=== PATIENT | female | born 1990 | race Caucasian/White ===

== ENCOUNTER 2016-11-07 21:04 | Emergency (ER) | payer MEDICAID ==
[~2016-11-07] VITALS: Ht 157.5 cm; Wt 72.1 kg
[~2016-11-07 21:04] MED LIST: IBUP600 PO; IRONCAP2 PO; METH-703 PO; PREN0.01 PO; PROT40TA PO
[2016-11-07 21:11] VITALS: BP 115/72; PULSE 100; RESP 18; TEMP 98.2; O2SAT 100
--- NOTE | 2016-11-07 22:19 | PD ---
HPI Chief Complaint: Cold / Flu Symptoms Time Seen by Provider: 22:18 Travel History International Travel<30 days: No Contact w/Intl Traveler<30days: No Traveled to known affect area: No History of Present Illness HPI 26-year-old female 5 months presents to the emergency department for evaluation of sore throat, nasal congestion, runny nose, cough for 1 day. Patient denies fever, chills, nausea, vomiting, chest pain, shortness of breath , abdominal pain, vaginal bleeding. States that she thought she saw bumps in the back of her throat earlier today which is what prompted her to come in. She denies travel or sick contacts. States she has been feeling the baby move well today. No other complaints. PFSH Past Medical History Medical History: Denies Significant Hx Tetanus Vaccination: < 5 Years Influenza Vaccination: No ?: LMP: 5 months Past Surgical History Surgical History: No Previous Surgery Social History Alcohol Use: No Tobacco Use: No Substance Use: No Allergies-Medications (Allergen,Severity, Reaction): Coded Allergies: No Known Allergies (Unverified , 11/07/16) Reported Meds & Prescriptions Reported Meds & Active Scripts Active No Active Prescriptions or Reported Medications Review of Systems Except as stated in HPI: all other systems reviewed are Neg Physical Exam Narrative GENERAL: Well-nourished and well-developed pleasant female patient in no acute distress who is nontoxic appearing. SKIN: Warm and dry. HEAD: Normocephalic and atraumatic. EYES: No injection, drainage, or hyphema noted. PERRLA. EOMI. ENT: No nasal drainage noted. Oropharynx is clear and the TMs are normal with good landmarks. NECK: Supple and the trachea is midline. No lymphadenopathy is noted throughout the cervical chains. CARDIOVASCULAR: Regular rate and rhythm. RESPIRATORY: Breath sounds are equal bilaterally with no accessory muscle use, wheezing, rhonchi, or crackles. GASTROINTESTINAL: Abdomen is soft, non-tender, and nondistended. MUSCULOSKELETAL: No obvious deformities, swelling, cyanosis, or ecchymosis is present throughout the upper and lower extremities. Patient has full range of motion without any signs of neurovascular compromise. NEUROLOGICAL: Awake, alert, and oriented. Normal speech and gait. Cranial nerves are grossly intact. Data Data Last Documented VS Vital Signs Date Time Temp Pulse Resp B/P Pulse Ox O2 Delivery O2 Flow Rate FiO2 11/07/16 21:15 16 100 Room Air 11/07/16 21:11 98.2 100 115/72 MDM Medical Decision Making Medical Screen Exam Complete: Yes Emergency Medical Condition: Yes Differential Diagnosis URI versus viral syndrome versus pharyngitis versus GERD Narrative Course 26-year-old female 5 months presents to the emergency department for evaluation of sore throat with cough and cold symptoms for one day. Patient is afebrile. She is tachycardic with a heart rate of 100 bpm. Otherwise vital signs are within normal limits. Physical examination is unremarkable. Patient appears well overall. heart tones within normal limits. Discussed supportive care with the patient. This is a viral upper respiratory infection. 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 Patient verbalizes understanding and agreement with treatment plan. Diagnosis Primary Impression: Upper respiratory infection Qualified Code: J06.9 - Viral upper respiratory tract infection Referrals: Broiler Supervisor Patient Instructions: General Instructions, Upper Respiratory Infection (ED), Upper Respiratory Infection in Children (ED) Additional Instructions: Rest. Drink plenty of fluids. Take [id number] tylenol as directed on the box as needed for pain. Follow-up with your Primary Care Physician. Return to the ED for any acute worsening of symptoms. Med/Other Pt SpecificInfo: No Change to Meds Scripts No Active Prescriptions or Reported Meds Disposition: 01 DISCHARGE HOME Condition: Stable Jennifer Crane Nov 07, 2016 22:19
== END 2016-11-07 22:25 | disposition home or self-care (01) ==
LOC: PHEFT 21:04
DX: O26.92 Pregnancy related conditions, unspecified, second trimester (principal); J06.9 Acute upper respiratory infection, unspecified; R00.0 Tachycardia, unspecified
CPT/HCPCS: 99283

== ENCOUNTER → 2017-02-06 | Outpatient (CLI) | payer MEDICAID | LOC: HPND 08:38 | PROVIDERS: ATTEND Obstetrics & Gynecology | DX: O36.5930 Maternal care for other known or suspected poor fetal growth, third trimester, not applicable or unspecified (principal); Z3A.36 36 weeks gestation of pregnancy | CPT/HCPCS: 76816 ==

== ENCOUNTER 2017-02-08 17:35 | Emergency (ER) | payer MEDICAID ==
[~2017-02-08] VITALS: Ht 157.5 cm; Wt 75.3 kg
--- NOTE | 2017-02-08 18:55 | PD ---
HPI Travel History International Travel<30 Days: No Contact w/Intl Traveler<30Days: No Known Affected Area: No History of Present Illness HPI This patient is a 26-year-old 2 para 1 EDC is March 04, 2017 presently at 36 weeks and 4 days she presents with chief complaint of pain in the suprapubic area that radiates to her upper thighs and low back pain sharp constant feels more like pressure no rupture of membranes no vaginal bleeding no keisha contractions the baby is active no fever no chills no nausea no vomiting no diarrhea or constipation no recent sexual intercourse no urinary tract symptoms states she's been excessively active today washing and cleaning out her car doing laundry 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 4 oz. vaginal delivery complicated by uterine inversion Past Surgical History Narrative Surgical Had a melanie removed from her buttocks as a child Family History Family History: Negative Social History Alcohol Use: No Tobacco Use: No Substance Abuse: No Allergies-Medications (Allergen,Severity, Reaction): Coded Allergies: No Known Allergies (Unverified , 02/08/17) Home Meds No Active Prescriptions or Reported Meds Review of Systems Gastrointestinal: Abdominal Pain (pressure in her lower abdomen) Musculoskeletal: Other (pressure in her lower back) Physical Exam Narrative GENERAL: Well-nourished, well-developed patient. Alert oriented 3 and cooperative in moderate distress secondary to low back and lower abdominal pain SKIN: Warm and dry. HEAD: Normocephalic and atraumatic. EYES: No scleral icterus. No injection or drainage. ENT: No nasal drainage noted. Mucous membranes pink. Airway patent. NECK: Supple, trachea midline. No JVD. CARDIOVASCULAR: Regular rate and rhythm without murmurs, gallops, or rubs. RESPIRATORY: Breath sounds equal bilaterally. No accessory muscle use.. ABDOMEN/GI: Gravid consistent with approximately 36 weeks uterus is soft no palpable contractions no epigastric or right upper quadrant tenderness no palpable contractions Gravid to [-] weeks size 36 weeks size Fundal Height: [-] GENITOURINARY: External Genitalia: intact and normal in appearance BUS glands: [-] Cervix: [-] Posterior soft Dilatation: [-] Closed Effacement: [-] 0 Station: [-] -2 Presentation: [-] Vertex Membranes: [intact Uterine Contractions: [-] Irregular FHT's: Category: [-] 1 Baseline: [-] 150 Reactive: [-]+ Accelerations to 180 Variability: [-] Moderate [id number] variability Decels: [-] 0 EXTREMITIES: No cyanosis or edema. 2+ reflexes NEUROLOGICAL: Awake and alert. Motor and sensory grossly within normal limits. Five out of 5 muscle strength in all muscle groups. Normal speech. Data Data Vital Signs Reviewed: Yes (blood pressure 119/70 pulse 101 afebrile) Labs Bedside ultrasound is done amniotic fluid index is 12.89 Vertex presentation measuring 9.00 equaling 36 weeks and 3 days Anterior grade 2 placenta no abruption no previa Positive sustained breathing Positive flexion positive tone Category 1 reactive tracing 10 out of 10 biophysical profile MDM Medical Record Reviewed: No (no records available) Interpretation(s) 26-year-old at 36 weeks and 4 days Not in labor Lightning with musculoskeletal pain in the low back and lower abdomen Rule out UTI History of uterine inversion with the last delivery 10 out of 10 biophysical profile Narrative Course / MDM Urinalysis is negative Category 1 tracing Plan By mouth fluid hydration External monitoring Vistaril 50 mg by mouth single dose Urinalysis If urine is positive for UTI will treat with Keflex 500 mg by mouth 3 times a day for 7 days Patient follow-up with Dr. Colon on Thursday Diagnosis Diagnosis: Primary Impression: 36 weeks gestation of Additional Impressions: Jasiel Monreal contractions Musculoskeletal pain Disposition: DISCHARGE HOME Condition: Stable Scripts No Active Prescriptions or Reported Meds She Lin MD Feb 08, 2017 18:55
[2017-02-08 19:51] LABS: BLOOD, URINE NEG (NEG); COMMENT (UR) CULT NOT INDICATED; CULTURE IF INDICATED CULT NOT INDICATED; GLUCOSE,URINE NEG (NEG); KETONE, URINE TRACE mg/dL (NEG); MUCUS URINE FEW /lpf (OCC); NITRITE,URINE NEG (NEG); PH, URINE 6.5 (5.0-8.5); SQUAMOUS EPITHELIAL CELL URINE 1 /hpf (0-5); URINE COLOR YELLOW (YELLW/STRAW)
== END 2017-02-08 20:14 | disposition home or self-care (01) ==
LOC: HOBED 17:35
DX: O47.03 False labor before 37 completed weeks of gestation, third trimester (principal); R52 Pain, unspecified; Z3A.36 36 weeks gestation of pregnancy
CPT/HCPCS: 59025; 81001

== ENCOUNTER 2017-02-27 08:25 | Inpatient (IN) | payer MEDICAID ==
[2017-02-27] VITALS (7 sets, daily range): BP systolic 106–112; BP diastolic 61–68; PULSE 66–86; RESP 16–18; TEMP 97.5–98.3
[2017-02-27 13:34] LABS: AUTOMATED NEUTROPHIL # 7.2 TH/MM3 (1.8-7.7); BASOPHIL % 0.4 % (0.0-2.0); EOSINOPHIL # 0.1 TH/MM3 (0-0.4); HEMATOCRIT 31.4 % (35.0-46.0); HEMO FLAGS DIFF FINAL; LYMPH % 15.6 % (9.0-44.0); LYMPHOCYTE # 1.5 TH/MM3 (1.0-4.8); MEAN CELL VOLUME 76.2 FL (80.0-100.0); MEAN CORPUSCULAR HEMOGLOBIN 23.3 PG (27.0-34.0); MEAN CORPUSCULAR HGB CONC 30.6 % (32.0-36.0); MONO % 6.3 % (0.0-8.0); NEUT % 76.7 % (16.0-70.0); PLATELET COUNT 178 TH/MM3 (150-450); RED BLOOD COUNT 4.12 MIL/MM3 (4.00-5.30); RED CELL DISTRIBUTION WIDTH 16.2 % (11.6-17.2); WHITE BLOOD COUNT 9.4 TH/MM3 (4.0-11.0)
[2017-02-27] MEDS ORDERED: LACTATED RINGER'S 1000 ML BOLUS IV PRN (13:45)
[2017-02-27] MEDS ORDERED: LIDOCAINE HCL 1% 50 ML VIAL I-DERMAL PRN (13:45)
[2017-02-27] MEDS ORDERED: NS 1000 ML IV PRN (13:45)
[2017-02-27] MEDS ORDERED: MINERAL OIL 10 ML VIAL TOPICAL PRN (13:45)
[2017-02-27] MEDS ORDERED: CITRIC ACID-SODIUM CITRATE LIQ 30 ML UDC PO SCH (13:45)
[2017-02-27] MEDS ORDERED: NS 500 ML BOLUS IV PRN (13:45)
[2017-02-27] MEDS ORDERED: OXYTOCIN 30 UNITS 500ML PREMIX IV ONE (13:45)
[2017-02-27] MEDS ORDERED: LIDOCAINE HCL 1% 50 ML VIAL INFIL PRN (13:45)
[2017-02-27 13:54] LABS: BACTERIA, URINE RARE /hpf; BLOOD, URINE NEG (NEG); COMMENT (UR) CULT NOT INDICATED; CULTURE IF INDICATED CULT NOT INDICATED; GLUCOSE,URINE NEG (NEG); KETONE, URINE NEG (NEG); MUCUS URINE FEW /lpf (OCC); NITRITE,URINE NEG (NEG); PH, URINE 6.5 (5.0-8.5); SQUAMOUS EPITHELIAL CELL URINE <1 /hpf (0-5); URINE COLOR LIGHT-YELLOW (YELLW/STRAW)
[2017-02-27] MEDS: LACTATED RINGER'S 1000 ML IV SCH ×2 (14:48→23:49)
--- NOTE | 2017-02-27 15:21 | MH ---
cc: Yudelka FULTON MD DATE OF ADMISSION: 02/27/2017 REASON FOR ADMISSION 1. Intrauterine at 39 weeks. 2. Intrauterine growth restriction. 3. Recommended delivery. HISTORY OF PRESENT ILLNESS Ms. Jessica is a 27-year-old female, para 1-0-0-1. whose last menstrual period and early ultrasound put her at 39+ weeks. At approximately 31 weeks she started measuring small for dates. At that time the baby was growing adequately but was a little bit on the small side. We repeated the ultrasound and she was seen in the center today and was definitely diagnosis with intrauterine growth retardation. The baby is doing well, had good NST and the strip looks good. She is larisa mildly. Her cervix is 2-3 cm and she had a baby a year and a half ago. She is being admitted for induction because of the intrauterine growth restriction. Her ALEKSANDER is 6. PAST OB HISTORY She is para 1-0-0-1. She had without any problems. 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 Trichomonas, gonorrhea and Chlamydia all negative in September 2016. PAST MEDICAL HISTORY The past medical history is remarkable for anemia. PAST SURGICAL HISTORY She had a piece of rebar removed from her buttocks. SOCIAL HISTORY She is single. She never smoked. Does not drink alcohol or take drugs. FAMILY HISTORY Negative. ALLERGIES No known drug allergies. MEDICATIONS Current medications are vitamins and iron. REVIEW OF SYSTEMS No headaches. No spots in front of her eyes. No chest pain, chest pressure. No shortness of breath. The baby is moving well. No rupture of membranes or bleeding. PHYSICAL EXAMINATION GENERAL: A well-developed, well-nourished female in no acute distress, resting comfortably in bed. VITAL SIGNS: Blood pressure is 112/61, respirations 18, pulse 66, temperature 98.3. HEENT: Normocephalic, atraumatic. NECK: Supple. Trachea is in the midline. CHEST: Clear to auscultation. HEART: Regular rate and rhythm. ABDOMEN: Gravid, nontender. The baby seems a little small. PELVIC: The pelvic exam is done by nurse practitioner. The patient is 2 cm and vertex. EXTREMITIES: No clubbing, cyanosis or edema. ASSESSMENT AND PLAN 1. Intrauterine at 39+ weeks. 2. Intrauterine growth restriction. 3. Recommended for delivery by the perinatologist. Will go ahead. Her cervix is inducible, but I would like to do cervical ripening overnight with Cervidil and start some Pitocin early in the morning. She is having some contractions. I will let her eat dinner tonight and then make clear liquids past midnight. R. MD NEPTALI Schneider/MAICOL /2:57 PM /3:07 PM
[2017-02-27] MEDS ORDERED: ZOLPIDEM TARTRATE 5 MG TAB PO PRN (16:00)
[2017-02-27] MEDS ORDERED: DINOPROSTONE 10 MG VAG INSERT VAGINAL ONE (18:00)
[2017-02-28] VITALS (61 sets, daily range): BP systolic 90–127; BP diastolic 55–84; PULSE 55–113; RESP 16–18; TEMP 97.8–98.5
[2017-02-28] MEDS ORDERED: OXYTOCIN 30 UNITS/NS 500ML PREMIX IV SCH (06:00)
[2017-02-28] MEDS: LACTATED RINGER'S 1000 ML IV SCH (06:09)
[2017-02-28] MEDS ORDERED: fentaNYL 2MCG-BUPIV 0.125% INJ 100 ML ONE (09:22)
[2017-02-28] MEDS ORDERED: ePHEDrine/NS 25 MG/5 ML SYR IV PRN ×2 (10:45)
[2017-02-28] MEDS ORDERED: DO NOT ADMINISTER ANTICOAGULANTS PRN ×2 (10:45→11:00)
[2017-02-28] MEDS ORDERED: NO SYSTEM NARCOTICS PRN ×2 (10:45→11:00)
[2017-02-28] MEDS ORDERED: fentaNYL 2MCG-BUPIV 0.125% 100 ML EPIDURAL SCH ×2 (10:45→11:00)
[2017-02-28] MEDS ORDERED: ACETAMINOPHEN 325 MG TAB PO PRN (11:00)
[2017-02-28] MEDS ORDERED: TERBUTALINE INJ 1 MG/ML AMP ONE (11:15)
--- NOTE | 2017-02-28 11:23 | PD.OB.ANTE ---
Subjective Diagnosis: (1) Oligohydramnios (2) state, incidental Objective Vital Signs Vital Signs Date Time Temp Pulse Resp B/P Pulse Ox O2 Delivery O2 Flow Rate FiO2 02/28/17 11:05 65 02/28/17 11:00 61 110/66 02/28/17 11:00 97.8 70 16 02/28/17 10:55 59 02/28/17 10:50 59 02/28/17 10:45 59 02/28/17 10:45 59 105/63 02/28/17 10:40 62 02/28/17 10:35 60 02/28/17 10:30 62 02/28/17 10:30 59 104/65 02/28/17 10:25 63 02/28/17 10:20 64 02/28/17 10:15 72 99/64 02/28/17 10:15 69 02/28/17 10:10 68 105/67 02/28/17 10:10 71 02/28/17 10:05 74 111/67 02/28/17 10:05 77 02/28/17 10:00 78 115/60 02/28/17 10:00 73 02/28/17 09:55 80 02/28/17 09:55 73 115/62 02/28/17 09:50 81 02/28/17 09:50 77 109/70 02/28/17 09:47 16 02/28/17 09:45 82 108/71 02/28/17 09:45 92 02/28/17 09:40 91 02/28/17 09:40 75 115/68 02/28/17 09:35 100 90/71 02/28/17 09:35 113 18 02/28/17 09:33 95 111/74 02/28/17 08:44 76 106/66 02/28/17 08:44 18 02/28/17 08:13 98.5 02/28/17 08:00 87 105/62 02/28/17 07:57 16 02/28/17 07:30 70 100/64 02/28/17 07:22 103 123/76 02/28/17 07:21 16 02/28/17 07:00 75 109/74 02/28/17 06:30 66 102/71 02/28/17 06:16 68 116/76 02/28/17 05:37 97.8 18 02/28/17 05:34 89 119/71 02/27/17 21:34 97.5 86 18 108/68 02/27/17 19:12 97.6 02/27/17 19:12 85 16 108/62 02/27/17 18:00 98.0 02/27/17 18:00 18 02/27/17 17:43 85 106/64 02/27/17 14:00 98.3 02/27/17 13:59 66 112/61 02/27/17 13:58 18 Lab & Micro Results Test 02/27/17 02/27/17 13:00 13:15 Urine Color LIGHT-YELLOW Urine Turbidity CLEAR Urine pH 6.5 Urine Specific [place] 1.009 Urine Protein NEG mg/dL Urine Glucose (UA) NEG mg/dL Urine Ketones NEG mg/dL Urine Occult Blood NEG Urine Nitrite NEG Urine Bilirubin NEG Urine Urobilinogen LESS THAN 2.0 MG/DL Urine Leukocyte Esterase NEG Urine Squamous Epithelial <1 /hpf Cells Urine Bacteria RARE /hpf Urine Mucus FEW /lpf Microscopic Urinalysis Comment CULT NOT INDICATED White Blood Count 9.4 TH/MM3 Red Blood Count 4.12 MIL/MM3 Hemoglobin 9.6 GM/DL Hematocrit 31.4 % Mean Corpuscular Volume 76.2 FL Mean Corpuscular Hemoglobin 23.3 PG Mean Corpuscular Hemoglobin 30.6 % Concent Red Cell Distribution Width 16.2 % Platelet Count 178 TH/MM3 Mean Platelet Volume 9.1 FL Neutrophils (%) (Auto) 76.7 % Lymphocytes (%) (Auto) 15.6 % Monocytes (%) (Auto) 6.3 % Eosinophils (%) (Auto) 1.0 % Basophils (%) (Auto) 0.4 % Neutrophils # (Auto) 7.2 TH/MM3 Lymphocytes # (Auto) 1.5 TH/MM3 Monocytes # (Auto) 0.6 TH/MM3 Eosinophils # (Auto) 0.1 TH/MM3 Basophils # (Auto) 0.0 TH/MM3 CBC Comment DIFF FINAL Differential Comment Blood Type O POSITIVE Band and Hold Physical Exam GENERAL: Well-nourished, well-developed patient. CARDIOVASCULAR: Regular rate and rhythm without murmurs, gallops, or rubs. RESPIRATORY: Breath sounds equal bilaterally. No accessory muscle use. ABDOMEN/GI: Abdomen soft, non-tender. Fundus: [-] GENITOURINARY: External Genitalia: intact and normal in appearance Cervix: [-] Dilatation: [-] 4-5 Effacement: [-] 90% Station: [-] -1 Presentation: [-] vtx Membranes: [-] AROM clear Uterine Contractions: [-] FHT's: Category: [-] 1 Baseline: [-] Reactive: [-] Variability: [-] good Decels: [-] EXTREMITIES: No cyanosis or edema, non-tender, without signs of DVT. Assessment and Plan Problem List: (1) Oligohydramnios Status: Acute (2) state, incidental Status: Acute Assessment and Plan on pit, with epidural, anticipate Kami Montalvo MD Feb 28, 2017 11:23
--- NOTE | 2017-02-28 12:08 | PD.OB.DELI ---
Delivery Date: Feb 28, 2017 Anesthesia: Epidural Episiotomy: None Vaginal Delivery: Normal Presentation: Occiput anterior Nuchal Cord: x1 Infant: Female One Minute : 8 Five Minute : 8 Placenta: Spontaneous delivery Laceration: 2 deg Repair: Kami Carbajal MD Feb 28, 2017 12:08
[2017-02-28] MEDS ORDERED: OXYTOCIN 30 UNITS-500ML PREMIX 500 ML IV SCH (12:15)
[2017-02-28] MEDS ORDERED: BENZOCAINE 20% TOPICAL SPRAY 60 ML CAN TOPICAL PRN (12:15)
[2017-02-28] MEDS ORDERED: ZOLPIDEM TARTRATE 5 MG TAB PO PRN (12:15)
[2017-02-28] MEDS ORDERED: ALUMINUM/MAGNESIUM/SIMETH 30 ML CUP PO PRN (12:15)
[2017-02-28] MEDS ORDERED: SODIUM CHLORIDE 0.9% FLUSH 10 ML FLUSH IV FLUSH PRN (12:15)
[2017-02-28] MEDS ORDERED: WITCH HAZEL 50%/GLYCERIN 12.5% 40 PAD JAR TOPICAL PRN (12:15)
[2017-02-28] MEDS ORDERED: ONDANSETRON ODT 4 MG TAB PO PRN (12:15)
[2017-02-28] MEDS ORDERED: DOCUSATE SODIUM 50 MG/SENNA 8.6 MG TAB PO PRN (12:15)
[2017-02-28] MEDS ORDERED: DIPHTH/TETANUS/ACEL PERTUSSIS (BOOSTER) 0.5 ML VIAL/PFS IM ONE (16:00)
[2017-02-28] MEDS ORDERED: MEASLES, MUMPS, RUBELLA VACCINE 0.5 ML VIAL SQ ONE (16:00)
[2017-02-28] MEDS ORDERED: SODIUM CHLORIDE 0.9% FLUSH 10 ML FLUSH IV FLUSH SCH (21:00)
[2017-02-28] MEDS: IBUPROFEN 600 MG TAB PO PRN (23:25)
[2017-02-28] MEDS: ACETAMINOPHEN 325 MG TAB PO PRN (23:26)
[2017-03-01] MEDS: ACETAMINOPHEN 325 MG TAB PO PRN (06:30)
[2017-03-01] MEDS: IBUPROFEN 600 MG TAB PO PRN (06:30)
[2017-03-01 08:00] VITALS: BP 109/67; PULSE 86; RESP 15; TEMP 97.6
--- NOTE | 2017-03-01 09:50 | HHI.OB ---
Subjective Post Day: 1 Remarks no complaints Objective Vitals/I&O Vital Signs Date Time Temp Pulse Resp B/P Pulse Ox O2 Delivery O2 Flow Rate FiO2 03/01/17 08:00 97.6 86 15 109/67 02/28/17 20:40 98.0 18 02/28/17 20:40 94 113/77 02/28/17 16:27 98.0 76 16 111/66 02/28/17 15:07 16 02/28/17 15:00 83 119/55 02/28/17 14:45 96 111/73 02/28/17 14:30 89 115/73 02/28/17 14:15 86 116/70 02/28/17 14:00 97 125/80 02/28/17 13:45 71 120/67 02/28/17 13:31 70 113/71 02/28/17 13:16 73 113/63 02/28/17 13:14 18 02/28/17 13:00 63 121/79 02/28/17 12:45 16 02/28/17 12:45 71 127/84 02/28/17 12:31 78 115/79 02/28/17 12:24 98.2 02/28/17 12:17 16 02/28/17 12:15 65 120/69 02/28/17 12:01 55 95/66 02/28/17 11:55 16 02/28/17 11:50 93 02/28/17 11:45 72 120/78 02/28/17 11:45 67 02/28/17 11:35 58 02/28/17 11:30 60 02/28/17 11:30 62 109/73 02/28/17 11:25 66 02/28/17 11:20 63 02/28/17 11:15 65 111/65 02/28/17 11:15 77 02/28/17 11:10 60 02/28/17 11:05 65 02/28/17 11:00 61 110/66 02/28/17 11:00 97.8 70 16 02/28/17 10:55 59 02/28/17 10:50 59 02/28/17 10:45 59 02/28/17 10:45 59 105/63 02/28/17 10:40 62 02/28/17 10:35 60 02/28/17 10:30 62 02/28/17 10:30 59 104/65 02/28/17 10:25 63 02/28/17 10:20 64 02/28/17 10:15 72 99/64 02/28/17 10:15 69 02/28/17 10:10 68 105/67 02/28/17 10:10 71 02/28/17 10:05 74 111/67 02/28/17 10:05 77 02/28/17 10:00 78 115/60 02/28/17 10:00 73 02/28/17 09:55 80 02/28/17 09:55 73 115/62 02/28/17 09:50 81 02/28/17 09:50 77 109/70 Objective Remarks GENERAL: Well-nourished, well-developed patient. CARDIOVASCULAR: Regular rate and rhythm without murmurs, gallops, or rubs. RESPIRATORY: Breath sounds equal bilaterally. No accessory muscle use. ABDOMEN/GI: Abdomen soft, non-tender. Fundus: Firm, non-tender at umbilicus. GENITOURINARY: Light to moderate bleeding. EXTREMITIES: No cyanosis or edema, non-tender, without signs of DVT. Medications and IVs Current Medications Medications (Trade) Dose Ordered Sig/Layo Route Start Time Stop Time Status Last Admin (NS Flush) 2 ml BID IV FLUSH 02/28/17 21:00 (NS Flush) 2 ml UNSCH PRN IV FLUSH 02/28/17 12:15 (Tylenol) 650 mg Q4H PRN PO 02/28/17 12:15 03/01/17 06:30 (Motrin) 600 mg Q6H PRN PO 02/28/17 12:15 03/01/17 06:30 (Americaine 20% Top Spr) 1 spray Q4H PRN TOPICAL 02/28/17 12:15 02/28/17 16:25 (Tucks Pads) 1 applic QID PRN TOPICAL 02/28/17 12:15 02/28/17 16:25 (Teresa-Colace) 2 tab Q12H PRN PO 02/28/17 12:15 02/28/17 23:25 (Ambien) 5 mg HS PRN PO 02/28/17 12:15 (Mag-Al Plus Susp Liq) 15 ml Q8H PRN PO 02/28/17 12:15 (Zofran Odt) 4 mg Q6H PRN PO 02/28/17 12:15 Assessment/Plan Problem List: (1) Oligohydramnios (2) state, incidental (3) Vaginal delivery Assessment and Plan s/p PPD #1 Discharge Planning routine Attending Attestation pt seen by Kami Mar MD Mar 01, 2017 09:50
[2017-03-01] MEDS ORDERED: IBUP-232 PO (14:40)
--- NOTE | 2017-03-01 14:40 | HHI.DCPOC ---
Discharge Care Plan Your Health Problems Are: Pelvic pain Report Symptoms to Your Doctor -Temperature above 100.5 degrees -Redness, of incision or excessive or foul smelling drainage -Unusual pain or calf pain -Increased vaginal bleeding -Painful or difficulty urinating -Feelings of extreme sadness or anxiety after 2 weeks Goals to Promote Your Health * To prevent worsening of your condition and complications * To maintain your health at the optimal level Directions to Meet Your Goals Take your medications as prescribed Follow your dietary instruction Follow activity as directed Ensure plenty of rest for recovery Drink fluids for hydration Keep your appointments as scheduled Take your immunizations and boosters as scheduled If your symptoms worsen call your PCP, if no PCP go to Urgent Care Center or Emergency Room Smoking is Dangerous to Your Health. Avoid second hand smoke Call the 24-hour crisis hotline for domestic abuse at Kami Montalvo MD Mar 01, 2017 14:40
== END 2017-03-01 16:02 | disposition home or self-care (01) | DRG 775 ==
LOC: HPND 08:25 → H2EA 11:40 → H1EA 02-28 17:07
PROVIDERS: ADMIT Obstetrics & Gynecology; ATTEND Obstetrics & Gynecology
PROC: 0KQM0ZZ Repair Perineum Muscle, Open Approach (ICD-10-PCS; principal; 2017-02-27)
PROC: 10E0XZZ Delivery of Products of Conception, External Approach (ICD-10-PCS; 2017-02-27)
PROC: 00HU33Z Insertion of Infusion Device into Spinal Canal, Percutaneous Approach (ICD-10-PCS; 2017-02-27)
PROC: 3E0R3CZ (ICD-10-PCS; 2017-02-27)
DX: O36.5930 Maternal care for other known or suspected poor fetal growth, third trimester, not applicable or unspecified (principal); O41.03X0 Oligohydramnios, third trimester, not applicable or unspecified; Z37.0 Single live birth; O69.81X0 Labor and delivery complicated by cord around neck, without compression, not applicable or unspecified; Z3A.39 39 weeks gestation of pregnancy; O70.1 Second degree perineal laceration during delivery
CPT/HCPCS: 59025; 76816; 76818; 76820; 76821; 81001; 85025; 86900; 86901; 90715; J2590; J3105; J7120

== ENCOUNTER 2017-11-07 11:33 | Emergency (ER) | payer MEDICAID, OTHER ==
[~2017-11-07] VITALS: Ht 157.5 cm; Wt 73.0 kg
[~2017-11-07 11:33] MED LIST changes: +IBUP-232 PO; -IBUP600 PO; -IRONCAP2 PO; -METH-703 PO; -PREN0.01 PO; -PROT40TA PO
[2017-11-07 11:41] VITALS: BP 116/67; PULSE 136; RESP 18; TEMP 99.2; O2SAT 100
--- NOTE | 2017-11-07 13:46 | PD ---
HPI Chief Complaint: Flank/Kidney Pain Time Seen by Provider: 13:07 Travel History International Travel<30 days: No Contact w/Intl Traveler<30days: No Traveled to known affect area: No History of Present Illness HPI The patient was seen and examined in the presence of the nurse. This patient complains of right flank pain. Started spontaneously without injury. Severity is moderate. It radiates toward the right groin. She does have some dysuria. Denies fever. No alleviating factors. No exacerbating factors. Duration is one day PFSH Past Medical History Medical History: Denies Significant Hx Hx Anticoagulant Therapy: No Cardiovascular Problems: No Chemotherapy: No Cerebrovascular Accident: No Diabetes: No Respiratory: No ?: Unknown Past Surgical History Hysterectomy: No Other Surgery: Yes (melanie removed when younger, also uterine inversion ) Social History Alcohol Use: No Tobacco Use: No Substance Use: No Allergies-Medications (Allergen,Severity, Reaction): Coded Allergies: No Known Allergies (Unverified Adverse Reaction, Unknown, 11/07/17) Reported Meds & Prescriptions Reported Meds & Active Scripts Active Review of Systems General / Constitutional: No: Fever Eyes: No: Visual changes HENT: No: Headaches Cardiovascular: No: Chest Pain or Discomfort Respiratory: No: Shortness of Breath Gastrointestinal: Positive: Nausea, No: Abdominal Pain Genitourinary: Positive: Dysuria, Flank Pain Musculoskeletal: No: Pain Skin: No Rash Neurologic: No: Weakness Psychiatric: No: Depression Endocrine: No: Polydipsia Hematologic/Lymphatic: No: Easy Bruising Physical Exam Narrative GENERAL: Well-nourished, well-developed patient with right flank. SKIN: Focused skin assessment reveals no rash and nodules. Skin is Warm and dry. HEAD: Atraumatic. Normocephalic. EYES: Pupils equal and round. No scleral icterus. No injection or drainage. ENT: No nasal bleeding or discharge. Mucous membranes pink and moist. NECK: Trachea midline. No JVD. CARDIOVASCULAR: Regular rate and rhythm. No murmur appreciated. RESPIRATORY: No accessory muscle use. Clear to auscultation. Breath sounds equal bilaterally. GASTROINTESTINAL: Abdomen soft, non-tender, nondistended. Hepatic and splenic margins not palpable. MUSCULOSKELETAL: No obvious deformities. No clubbing. No cyanosis. No edema. NEUROLOGICAL: Awake and alert. No obvious cranial nerve deficits. Motor grossly within normal limits. Normal speech. PSYCHIATRIC: Appropriate mood and affect; insight and judgment normal. Data Data Last Documented VS Vital Signs Date Time Temp Pulse Resp B/P (MAP) Pulse Ox O2 Delivery O2 Flow Rate FiO2 11/07/17 11:41 99.2 136 18 116/67 (83) 100 Orders Orders Urinalysis - C+S If Indicated (11/07/17 13:26) Ed Urine Pregnancytest Poc (11/07/17 13:26) Urine Culture (11/07/17 13:56) Oxycodone-Acetamin 5-325 Mg (Percocet (11/07/17 14:45) Ciprofloxacin (Cipro) (11/07/17 14:45) Labs Laboratory Tests Test 11/07/17 13:56 Urine Color YELLOW Urine Turbidity CLOUDY Urine pH 7.0 Urine Specific [place] 1.018 Urine Protein 100 mg/dL Urine Glucose (UA) NEG mg/dL Urine Ketones NEG mg/dL Urine Occult Blood MOD Urine Nitrite NEG Urine Bilirubin NEG Urine Urobilinogen LESS THAN 2.0 MG/DL Urine Leukocyte Esterase LARGE Urine RBC 27 /hpf Urine WBC /hpf Urine WBC Clumps FEW Urine Squamous Epithelial Cells 4 /hpf Urine Bacteria RARE /hpf Microscopic Urinalysis Comment CULTURE INDICATED MDM Medical Decision Making Medical Screen Exam Complete: Yes Emergency Medical Condition: Yes Medical Record Reviewed: Yes Differential Diagnosis Pyelonephritis, cystitis, sciatica, kidney stone Narrative Course I have reviewed the patient's electronic medical record. Urine is negative Urinalysis shows innumerable inflammatory cells consistent with infection Presentation suggest pyelonephritis But she is young and healthy and I believe stable for outpatient follow-up Initially a heart rate of 136 but I rechecked it at 105 I gave her something for pain and a dose of Cipro 750 mg here Prescribing 10 days of Cipro and something for pain She is not febrile or hypotensive and does not look septic nor toxic She does not have a follow-up physician. If she does not have improvement in 48 hours or return here for recheck Diagnosis Primary Impression: Pyelonephritis Additional Instructions: The patient was warned about potential sedation for the medications they will receive on prescription. The patient was advised to follow up with their physician and return if they worsen. Med/Other Pt SpecificInfo: Prescription(s) given Scripts Tramadol (Tramadol) 50 Mg Tab 50 MG PO Q6H Y for PAIN, #12 TAB 0 Refills Prov: Adolfo Tomas MD 11/07/17 Ciprofloxacin (Cipro) 500 Mg Tab 500 MG PO BID for Infection, #20 TAB 0 Refills Prov: Adolfo Tomas MD 11/07/17 Disposition: 01 DISCHARGE HOME Condition: Stable Adolfo Tomas MD Nov 07, 2017 13:46
[2017-11-07 14:12] LABS: BACTERIA, URINE RARE /hpf; BILIRUBIN, URINE NEG (NEG); BLOOD, URINE MOD (NEG); GLUCOSE,URINE NEG (NEG); KETONE, URINE NEG (NEG); NITRITE,URINE NEG (NEG); SQUAMOUS EPITHELIAL CELL URINE 4 /hpf (0-5); URINE COLOR YELLOW (YELLW/STRAW); URINE LEUKOCYTE ESTERASE LARGE (NEG); WHITE BLOOD CELL CLUMPS FEW
[2017-11-07] MEDS ORDERED: oxyCODONE/ACETAMINOPHEN 5 MG/325 MG TAB PO ONE (14:45)
[2017-11-07] MEDS ORDERED: CIPROFLOXACIN 750 MG TAB PO ONE (14:45)
[2017-11-07] MEDS ORDERED: CIPR-9 PO (15:48)
[2017-11-07] MEDS ORDERED: TRAM50TA PO (15:48)
== END 2017-11-07 16:24 | disposition home or self-care (01) ==
LOC: NEPD 11:33
DX: N12 Tubulo-interstitial nephritis, not specified as acute or chronic (principal); B96.20 Unspecified Escherichia coli [E. coli] as the cause of diseases classified elsewhere
CPT/HCPCS: 81001; 84703; 87077; 87086; 87186; 99283

== ENCOUNTER 2017-11-09 13:22 | Emergency (ER) | payer OTHER ==
[~2017-11-09] VITALS: Ht 157.5 cm; Wt 52.7 kg
[~2017-11-09 13:22] MED LIST changes: +CIPR-9 PO; -IBUP-232 PO; +TRAM50TA PO
[2017-11-09] MEDS ORDERED: IOHEXOL 350 MG/ML 10 ML VIAL (for RAD DIAG) IVCONTRAST ONE (13:23)
[2017-11-09 13:35] VITALS: BP 115/68; PULSE 118; RESP 18; TEMP 98.6; O2SAT 100
[2017-11-09] MEDS: SODIUM CHLOR 0.9% 1000 ML INJ 1,000 ML IV SCH (17:06)
--- NOTE | 2017-11-09 17:08 | PD ---
HPI Chief Complaint: Flank/Kidney Pain Time Seen by Provider: 17:05 Travel History International Travel<30 days: No Contact w/Intl Traveler<30days: No Traveled to known affect area: No History of Present Illness HPI 27-year-old female presents for evaluation of nausea, vomiting, abdominal pain. She was seen here on November 07 at which time she was complaining of right flank pain which radiated to the groin. She was diagnosed with pyelonephritis and prescribed tramadol and ciprofloxacin. She reports nausea and vomiting and inability to take her medication secondary to nausea and vomiting. She has had worsening abdominal pain which she says is mainly in the lower part of her abdomen but also generalized. She has bilateral back pain. Pain is an aching pain constant, worse with movement. She reports sweats and chills. No objective fevers. Denies cough, congestion, vaginal bleeding or discharge. Last menstrual period was last week. No other complaints. PFSH Past Medical History Hx Anticoagulant Therapy: No Cardiovascular Problems: No Chemotherapy: No Cerebrovascular Accident: No Diabetes: No Respiratory: No Past Surgical History Hysterectomy: No Other Surgery: Yes (melanie removed when younger, also uterine inversion ) Social History Alcohol Use: No Tobacco Use: No Substance Use: No Allergies-Medications (Allergen,Severity, Reaction): Coded Allergies: No Known Allergies (Unverified Adverse Reaction, Unknown, 11/09/17) Reported Meds & Prescriptions Reported Meds & Active Scripts Active Zofran Odt (Ondansetron Odt) 4 Mg Tab 4 Mg SL Q6HR PRN Bactrim DS (Sulfamethoxazole-Trimethoprim) 800-160 Mg Tab 1 Tab PO BID Tramadol (Tramadol HCl) 50 Mg Tab 50 Mg PO Q6H PRN Cipro (Ciprofloxacin HCl) 500 Mg Tab 500 Mg PO BID Review of Systems Except as stated in HPI: all other systems reviewed are Neg Physical Exam Narrative GENERAL: Well-developed well-nourished female no acute distress. Tachycardic in triage. SKIN: Warm and dry. HEAD: Atraumatic. Normocephalic. EYES: Pupils equal and round. No scleral icterus. No injection or drainage. ENT: No nasal bleeding or discharge. Mucous membranes pink and moist. NECK: Trachea midline. No JVD. CARDIOVASCULAR: Regular rate and rhythm. No murmur appreciated. RESPIRATORY: No accessory muscle use. Clear to auscultation. Breath sounds equal bilaterally. GASTROINTESTINAL: Abdomen soft, mild generalized tenderness to palpation without guarding. MUSCULOSKELETAL: No obvious deformities. Mild bilateral CVA tenderness is present. No lower extremity edema. NEUROLOGICAL: Awake and alert. No obvious cranial nerve deficits. Motor grossly within normal limits. Normal speech. Data Data Last Documented VS Vital Signs Date Time Temp Pulse Resp B/P (MAP) Pulse Ox O2 Delivery O2 Flow Rate FiO2 11/09/17 19:14 110 20 119/59 (79) 100 Room Air 11/09/17 13:35 98.6 Orders Orders Complete Blood Count With Diff (11/09/17 13:36) Comprehensive Metabolic Panel (11/09/17 13:36) Lipase (11/09/17 13:36) Urinalysis - C+S If Indicated (11/09/17 13:36) Ed Urine Pregnancytest Poc (11/09/17 13:36) Lactic Acid Sepsis Protocol (11/09/17 13:36) Ct Abd/Pel W Iv Contrast(Rout) (11/09/17 17:06) Iv Access Insert/Monitor (11/09/17 17:06) Ondansetron Inj (Zofran Inj) (11/09/17 17:15) Sodium Chlor 0.9% 1000 Ml Inj (Ns 1000 M (11/09/17 17:06) Blood Culture (11/09/17 17:06) Ceftriaxone Inj (Rocephin Inj) (11/09/17 18:45) Iohexol 350 Inj (Omnipaque 350 Inj) (11/09/17 13:23) Ketorolac Inj (Toradol Inj) (11/09/17 19:15) Urine Culture (11/09/17 17:45) Ed Discharge Order (11/09/17 19:41) Labs Laboratory Tests Test 11/09/17 17:45 11/09/17 18:25 11/09/17 18:35 Urine Color YELLOW Urine Turbidity CLEAR Urine pH 5.5 Urine Specific Earle 1.014 Urine Protein 100 mg/dL Urine Glucose (UA) NEG mg/dL Urine Ketones 80 mg/dL Urine Occult Blood SMALL Urine Nitrite NEG Urine Bilirubin NEG Urine Urobilinogen LESS THAN 2.0 MG/DL Urine Leukocyte Esterase MOD Urine RBC 13 /hpf Urine WBC 22 /hpf Urine Squamous Epithelial Cells <1 /hpf Urine Amorphous Sediment RARE Urine Bacteria RARE /hpf Microscopic Urinalysis Comment CULTURE INDICATED White Blood Count 12.6 TH/MM3 Red Blood Count 4.10 MIL/MM3 Hemoglobin 10.6 GM/DL Hematocrit 31.2 % Mean Corpuscular Volume 76.2 FL Mean Corpuscular Hemoglobin 25.9 PG Mean Corpuscular Hemoglobin Concent 33.9 % Red Cell Distribution Width 15.3 % Platelet Count 217 TH/MM3 Mean Platelet Volume 8.6 FL Neutrophils (%) (Auto) 84.4 % Lymphocytes (%) (Auto) 6.8 % Monocytes (%) (Auto) 8.0 % Eosinophils (%) (Auto) 0.2 % Basophils (%) (Auto) 0.6 % Neutrophils # (Auto) 10.6 TH/MM3 Lymphocytes # (Auto) 0.9 TH/MM3 Monocytes # (Auto) 1.0 TH/MM3 Eosinophils # (Auto) 0.0 TH/MM3 Basophils # (Auto) 0.1 TH/MM3 CBC Comment DIFF FINAL Differential Comment Blood Urea Nitrogen 16 MG/DL Creatinine 1.19 MG/DL Random Glucose 83 MG/DL Total Protein 7.7 GM/DL Calcium Level 9.1 MG/DL Alkaline Phosphatase 84 U/L Aspartate Amino Transf (AST/SGOT) 17 U/L Alanine Aminotransferase (ALT/SGPT) 16 U/L Total Bilirubin 0.4 MG/DL Sodium Level 135 MEQ/L Potassium Level 3.6 MEQ/L Chloride Level 102 MEQ/L Carbon Dioxide Level 23.6 MEQ/L Anion Gap 9 MEQ/L Estimat Glomerular Filtration Rate 55 ML/MIN Lipase 65 U/L Lactic Acid Level 1.2 mmol/L [facility] Medical Decision Making Medical Screen Exam Complete: Yes Emergency Medical Condition: Yes Medical Record Reviewed: Yes Differential Diagnosis Pyelonephritis, gastroenteritis, colitis, diverticulitis, peptic ulcer disease, cholecystitis, dehydration Narrative Course Lab work, urinalysis, CT abdomen pelvis has been ordered. The patient will be given IV fluids, Zofran, Toradol. CT abdomen pelvis is consistent with right-sided pyelonephritis. Lab work reveals a WBC count of 12.6, urinalysis reveals 22 WBCs, 13 RBCs, culture pending. I reviewed her urine culture results from her most recent visit which have grown out pansensitive E. coli. She appears well. She was given a dose of IV Rocephin here. At this point in time the plan will be to discharge her and to change her antibiotic from ciprofloxacin to Bactrim. She will be given a prescription for Zofran to help with any nausea. Discussed signs and symptoms that would warrant returning to the emergency room. She is stable for discharge. Diagnosis Primary Impression: Pyelonephritis Additional Instructions: Quit taking ciprofloxacin and tramadol. Take these new medications as prescribed. Tylenol or Motrin for pain and fever per dosing instructions on the bottle. Stay well hydrated and well-nourished. Return for any acutely new or worsening symptoms. Med/Other Pt SpecificInfo: Prescription(s) given Scripts Ondansetron Odt (Zofran Odt) 4 Mg Tab 4 MG SL Q6HR Y for Nausea/Vomiting, #30 TAB 0 Refills Prov: Serena Armstrong MD 11/09/17 Sulfamethoxazole-Trimethoprim (Bactrim DS) 800-160 Mg Tab 1 TAB PO BID for Infection, #14 TAB 0 Refills Prov: Serena Armstrong MD 11/09/17 Disposition: 01 DISCHARGE HOME Condition: Stable Fredi Wagner Nov 09, 2017 17:08
[2017-11-09] MEDS ORDERED: ONDANSETRON HCL 4 MG/2 ML VIAL IVP ONE (17:15)
--- NOTE | 2017-11-09 18:11 | PD ---
Physical Exam Date Seen by Provider: Nov 09, 2017 Narrative This patient presents for failed outpatient treatment of pyelonephritis. She was seen here a few days ago and diagnosed with pyelonephritis. She was discharged home with oral medications. She states that she has been vomiting her medicines since that time and presents back to us today. Data Data Last Documented VS Vital Signs Date Time Temp Pulse Resp B/P (MAP) Pulse Ox O2 Delivery O2 Flow Rate FiO2 11/09/17 13:35 98.6 118 18 115/68 (84) 100 Orders Orders Complete Blood Count With Diff (11/09/17 13:36) Comprehensive Metabolic Panel (11/09/17 13:36) Lipase (11/09/17 13:36) Urinalysis - C+S If Indicated (11/09/17 13:36) Ed Urine Pregnancytest Poc (11/09/17 13:36) Lactic Acid Sepsis Protocol (11/09/17 13:36) Ct Abd/Pel W Iv Contrast(Rout) (11/09/17 17:06) Iv Access Insert/Monitor (11/09/17 17:06) Ondansetron Inj (Zofran Inj) (11/09/17 17:15) Sodium Chlor 0.9% 1000 Ml Inj (Ns 1000 M (11/09/17 17:06) Blood Culture (11/09/17 17:06) MDM Supervised Visit with JESSE: Yes Narrative Course I, Dr. Armstrong, have reviewed the advance practice practitioner's documentation and am in agreement, met with the patient face to face, made the diagnosis, and the medical decision making was done by me. *My assessment and Findings: Vital Signs Date Time Temp Pulse Resp B/P (MAP) Pulse Ox O2 Delivery O2 Flow Rate FiO2 11/09/17 13:35 98.6 118 18 115/68 (84) 100 Clinically, this patient looks well. Repeat evaluation is in progress. Her urine culture from the other day is positive for E. coli which is pansensitive. She will be treated here with Rocephin. Please see Fredi Wagner PA-C's note for results of laboratory and radiographic evaluation, ED course, final diagnosis and disposition Serena Armstrong MD Nov 09, 2017 18:10
[2017-11-09 18:19] VITALS: BP 117/67; PULSE 112; RESP 18; O2SAT 100
[2017-11-09] MEDS ORDERED: cefTRIAXone INJ 1,000 MG in SODIUM CHLORIDE 0.9% INJ 100 ML IV ONE (18:45)
[2017-11-09 19:13] LABS: AUTOMATED NEUTROPHIL # 10.6 TH/MM3 (1.8-7.7); BASOPHIL # 0.1 TH/MM3 (0-0.2); BASOPHIL % 0.6 % (0.0-2.0); EOSINOPHIL % 0.2 % (0.0-4.0); HEMATOCRIT 31.2 % (35.0-46.0); HEMOGLOBIN 10.6 GM/DL (11.6-15.3); LYMPH % 6.8 % (9.0-44.0); LYMPHOCYTE # 0.9 TH/MM3 (1.0-4.8); MEAN CELL VOLUME 76.2 FL (80.0-100.0); MEAN CORPUSCULAR HEMOGLOBIN 25.9 PG (27.0-34.0); MEAN CORPUSCULAR HGB CONC 33.9 % (32.0-36.0); MEAN PLATELET VOLUME 8.6 FL (7.0-11.0); NEUT % 84.4 % (16.0-70.0); PLATELET COUNT 217 TH/MM3 (150-450); RED CELL DISTRIBUTION WIDTH 15.3 % (11.6-17.2); WHITE BLOOD COUNT 12.6 TH/MM3 (4.0-11.0)
[2017-11-09 19:13] LABS: AMORPHOUS SEDIMENT, URINE RARE; BACTERIA, URINE RARE /hpf; BILIRUBIN, URINE NEG (NEG); BLOOD, URINE SMALL (NEG); GLUCOSE,URINE NEG (NEG); KETONE, URINE 80 mg/dL (NEG); NITRITE,URINE NEG (NEG); PH, URINE 5.5 (5.0-8.5); SQUAMOUS EPITHELIAL CELL URINE <1 /hpf (0-5); URINE COLOR YELLOW (YELLW/STRAW); URINE LEUKOCYTE ESTERASE MOD (NEG)
[2017-11-09 19:14] VITALS: BP 119/59; PULSE 110; RESP 20; O2SAT 100
[2017-11-09] MEDS ORDERED: KETOROLAC TROMETHAMINE 30 MG/ML (IVP) VIAL IV PUSH ONE (19:15)
[2017-11-09 19:28] LABS: AST (GOT) 17 U/L (15-37); BICARBONATE 23.6 MEQ/L (21.0-32.0); BLOOD UREA NITROGEN 16 MG/DL (7-18); CALCIUM 9.1 MG/DL (8.5-10.1); CHLORIDE 102 MEQ/L (98-107); CREATININE 1.19 MG/DL (0.50-1.00); GLOMERULAR FILTRATION RATE 55 ML/MIN (>89); GLUCOSE,RANDOM 83 MG/DL (74-106); SODIUM (NA) 135 MEQ/L (136-145)
[2017-11-09 19:32] LABS: ALKALINE PHOSPHATASE 84 U/L (45-117); ALT (GPT) 16 U/L (10-53); TOTAL BILIRUBIN ADULT 0.4 MG/DL (0.2-1.0); TOTAL PROTEIN 7.7 GM/DL (6.4-8.2)
--- NOTE | 2017-11-09 19:32 | RADRPT ---
EXAM DATE/TIME: 11/09/2017 18:47 [facility] COMPARISON: No previous studies available for comparison. INDICATIONS : Bilateral flank pain,vomiting IV CONTRAST: 90 cc Omnipaque 350 (iohexol) IV ORAL CONTRAST: No oral contrast ingested. RADIATION DOSE: 13.45 CTDIvol (mGy) MEDICAL HISTORY : None SURGICAL HISTORY : None. ENCOUNTER: Initial ACUITY: 2 days PAIN SCALE: 8/10 LOCATION: Abdomen TECHNIQUE: Volumetric scanning of the abdomen and pelvis was performed. Using automated exposure control and ad justment of the mA and/or kV according to patient size, radiation dose was kept as low as reasonably achievable to obtain optimal diagnostic quality images. DICOM format image data is available electro nically for review and comparison. FINDINGS: I some heterogeneous enhancement of both kidneys, but especially on the right side. Primary different ial diagnosis is pyelonephritis. Stranding around the right kidney, probably edema or inflammatory ch doris. Lung bases are clear. No acute findings in the liver, spleen, adrenals or pancreas. No significant free fluid. Small follicular cysts in the ovaries. No free air. No bowel obstruction. CONCLUSION: 1. Heterogeneous enhancement of predominantly the right kidney with perinephric edema or inflammation . CT findings are most characteristic of pyelonephritis. No hydronephrosis or obstructive uropathy. N o abscess, free fluid or free air. Te Harrington MD on November 09, 2017 at 19:26 Board Certified Radiologist. This report was verified electronically.
[2017-11-09] MEDS ORDERED: ZOFR4TAB3 SL (19:41)
[2017-11-09] MEDS ORDERED: BACT800T5 PO (19:41)
[2017-11-09 19:53] LABS: ALBUMIN 2.8 GM/DL (3.4-5.0)
[2017-11-09 20:08] VITALS: RESP 16
[2017-11-09 20:21] VITALS: BP 101/56
== END 2017-11-09 20:40 | disposition home or self-care (01) ==
LOC: NEPC 13:22
DX: N12 Tubulo-interstitial nephritis, not specified as acute or chronic (principal)
CPT/HCPCS: 74177; 80053; 81001; 83605; 83690; 84703; 85025; 87040; 87086; 96361; 96365; 96375; 99284; J0696; J1885; J2405; J7030; Q9967